=== PATIENT | female | born 1935 | race Caucasian/White ===

== ENCOUNTER → 2017-11-12 | Outpatient (CLI) | payer OTHER, MEDICARE ==
[2016-01-10 12:36] VITALS: BP 169/68
--- NOTE | 2017-11-14 10:53 | MRI ---
MRI right shoulder without contrast Indication: Right shoulder pain and stiffness with decreased range of motion Technique: Multiplanar, multi sequence imaging of the right shoulder without IV contrast administrati on. Findings: There is intermediate grade bursal surface tearing within the anterior most aspect of the s upraspinatus tendon seen on coronal image 6 and sagittal image 8. There is a tiny intrasubstance tear at the footplate of the mid/posterior fibers of the supraspinatus tendon on coronal image 8 as well. The infraspinatus tendon demonstrates low-grade articular surface tearing within the mid and posteri or fibers of the footplate single lymph coronal image 12 approximating 25-50% thickness tear. There i s an adjacent subcortical cyst within the humeral head. Small amount of subacromial, subdeltoid bursa l fluid is noted. The subscapularis tendon demonstrates moderate tendinopathy and partial-thickness t earing within the distal superior fibers seen best on axial image 12. The long head biceps tendon demonstrates normal position within the bicipital groove with small amoun t of tenosynovitis of the biceps tendon. The intra-articular portion of the long head biceps tendon d emonstrates tendinopathy without tear. There is mild degenerative signal noted within the superior la maria g. The anterior and posterior labrum demonstrate degenerative signal within the anterior labrum ho wever no acute anterior or posterior labral tear. AC joint demonstrates severe synovial an osseous hypertrophic change with subcortical cyst formation within the distal clavicle. There is mass effect on the adjacent rotator cuff likely causing impingem ent and contributing to bursal surface tear. There is moderate amount of subacromial, subdeltoid burs al fluid consistent with bursitis. The inferior glenohumeral ligament is intact, evaluation for thick ening is limited given lack of fluid distention of the joint. Impression: 1. Intermediate grade approximate 50% thickness bursal surface tear of the anterior-most fibers of th e supraspinatus tendon, given the adjacent hypertrophic new bone formation and indentation of the sup raspinatus by the AC joint DJD this is suspicious for impingement. There is also a tiny intrasubstanc e tear at the footplate of the mid/posterior fibers of the supraspinatus tendon. No full-thickness te ar. No muscle atrophy. 2. Low grade approximate 25-50% thickness articular surface tearing of the posterior fibers of the di stal infraspinatus tendon with small subcortical cyst formation. 3. Partial-thickness tear of the superior fibers of the subscapularis tendon. 4. No acute labral tear. 5. Moderate subacromial, subdeltoid bursal fluid is most consistent with bursitis. 6. Mild increased fluid within the bicipital groove of the long head biceps tendon consistent with te nosynovitis. There is no evidence of tear or displacement of the intra-articular long head biceps ten don. Reported By:
== END | disposition home or self-care (01) | DRG 556 ==
LOC: RAD 12:53
PROVIDERS: ATTEND Nurse Practitioner Family
DX: M25.511 Pain in right shoulder (principal); S46.811A Strain of other muscles, fascia and tendons at shoulder and upper arm level, right arm, initial encounter; X58.XXXA Exposure to other specified factors, initial encounter; M19.011 Primary osteoarthritis, right shoulder
CPT/HCPCS: 73221

== ENCOUNTER → 2018-02-11 | Outpatient (CLI) | payer OTHER, MEDICARE ==
[2016-01-10 12:36] VITALS: BP 169/68
--- NOTE | 2018-02-11 15:16 | MG ---
HISTORY: SCREENING Comparison: 02/11/2017 FINDINGS: Bilateral CC and MLO projections of the right and left breast were obtained. Scattered fibroglandula r tissue is seen to be present. There is a new nodular density present within the right breast, locat ed at approximately the 8 o'clock to 9 o'clock position. Additional 2 small developing asymmetries ar e visualized anteriorly to the nodule on MLO view only. Further evaluation with spot compression view s, mediolateral view, and targeted sonography is recommended. No significant architectural distortion , mass or clustered microcalcifications can be observed to suggest malignancy. No skin thickening or nipple retraction is appreciated. No pathological lymphadenopathy can be identified. Benign-appear ing calcifications scattered throughout the right and left breasts are observed. IMPRESSION: 1. New right breast nodule and 2 small right breast developing asymmetries as described above for whi ch spot compression views, mediolateral view, and targeted sonography recommended. ACR CATEGORY 0 - assessment incomplete; additional imaging needed Spot compression views, mediolateral view, and targeted sonography of the right breast recommended Diagnostic CAD was utilized and reviewed. * 0 (ZERO) - ASSESSMENT INCOMPLETE; ADDITIONAL IMAGING IS NEEDED. * 1/1 (ONE) - NEGATIVE. * 2/II (TWO) - BENIGN FINDINGS. * 3/III (THREE) - PROBABLY BENIGN FINDING; SHORT INTERVAL FOLLOW-UP SUGGESTED. * 4/IV (FOUR) - SUSPICIOUS ABNORMALITY; BIOPSY SHOULD BE CONSIDERED. * 5/V - HIGHLY SUSPICIOUS OF MALIGNANCY; BIOPSY SHOULD BE PERFORMED. A NEGATIVE X-RAY REPORT SHOULD NOT DELAY BIOPSY IF A DOMINANT OR CLINICALLY SUSPICIOUS MASS IS PRESENT; 4 TO 8 PERCENT OF CANCERS ARE NOT IDENTIFIED BY X-RAY. A NEGA TIVE REPORT MAY REINFORCE THE CLINICAL IMPRESSION. ADENOSIS AND DENSE BREASTS MAY OBSCURE AN UNDERLY ING NEOPLASM. Reported By:
== END | disposition home or self-care (01) | DRG 951 ==
LOC: RAD 09:57
PROVIDERS: ATTEND Nurse Practitioner Family
DX: Z12.31 Encounter for screening mammogram for malignant neoplasm of breast (principal); N63.13 Unspecified lump in the right breast, lower outer quadrant
CPT/HCPCS: 77067

== ENCOUNTER → 2018-03-18 | Outpatient (CLI) | payer OTHER, MEDICARE ==
[2016-01-10 12:36] VITALS: BP 169/68
--- NOTE | 2018-03-18 15:35 | MG ---
HISTORY: Abnormal screening mammography with right breast nodule and asymmetry Right breast digital diagnostic mammography with CAD and right breast ultrasound. Comparison: Multiple priors dating back to August 25, 2008 FINDINGS: Mammogram: ML and spot compression CC and MLO projections of the right breast were obtained. Scatter ed fibroglandular tissue is seen to be present with no persistent asymmetry. There is a persistent 5 mm partially obscured and partially circumscribed isodense nodule with microcalcifications located i n the upper outer anterior breast which will be correlated with ultrasound. Ultrasound: Multiple grayscale and color Doppler images of the right breast were obtained from 8-11 o 'clock. At 11 o'clock 2 cm from the nipple and favored to represent an incidental finding related to otherwise stable mammographic focal asymmetry, there is a horizontally oriented macro lobulated but s moothly marginated and well circumscribed 9 mm heterogeneous hypoechoic nodule with posterior acousti melba enhancement and no internal Doppler flow favored to represent a complex cyst or fibroadenoma. At 10 o'clock approximately 3 cm from the nipple, there is a horizontally oriented macro lobulated but s moothly marginated and well circumscribed 6 mm anechoic cyst with posterior acoustical enhancement an d no internal Doppler flow most compatible with a benign simple parenchymal cysts and which could cor respond to the mammographic findings. There is an additional 5 mm lesion at 8 o'clock 3 cm from the n ipple which could also correspond to the mammographic findings which is horizontally oriented and smo othly marginated with well-circumscribed borders again with posterior acoustical enhancement and no i nternal Doppler flow but with trace internal debris which could also correspond to the mammographic f indings. No suspicious peripheral nodular component is seen. IMPRESSION: Probably benign right breast nodule with punctate microcalcifications corresponding to e ither a simple cyst at 10 o'clock or mildly complex cyst at 8 o'clock sonographically and with an add itional probable incidental complex cyst versus fibroadenoma at 11 o'clock for which six-month follow -up right breast mammography and ultrasound are recommended. ACR CATEGORY 3 - probably benign findings; short interval follow-up suggested. Diagnostic CAD was utilized and reviewed. * 0 (ZERO) - ASSESSMENT INCOMPLETE; ADDITIONAL IMAGING IS NEEDED. * 1/ (ONE) - NEGATIVE. * 2/II (TWO) - BENIGN FINDINGS. * 3/III (THREE) - PROBABLY BENIGN FINDING; SHORT INTERVAL FOLLOW-UP SUGGESTED. * 4/IV (FOUR) - SUSPICIOUS ABNORMALITY; BIOPSY SHOULD BE CONSIDERED. * 5/V - HIGHLY SUSPICIOUS OF MALIGNANCY; BIOPSY SHOULD BE PERFORMED. A NEGATIVE X-RAY REPORT SHOULD NOT DELAY BIOPSY IF A DOMINANT OR CLINICALLY SUSPICIOUS MASS IS PRESENT; 4 TO 8 PERCENT OF CANCERS ARE NOT IDENTIFIED BY X-RAY. A NEGA TIVE REPORT MAY REINFORCE THE CLINICAL IMPRESSION. ADENOSIS AND DENSE BREASTS MAY OBSCURE AN UNDERLY ING NEOPLASM. Reported By:
== END ==
LOC: RAD 12:46
PROVIDERS: ATTEND Internal Medicine
DX: R92.8 Other abnormal and inconclusive findings on diagnostic imaging of breast (principal)
CPT/HCPCS: 76642; 77065

== ENCOUNTER 2018-04-21 10:28 | Inpatient (IN) | payer OTHER, MEDICARE ==
[2018-04-21] MEDS ORDERED: TUSSIONEX PENNKINETIC SUSP PO PRN (11:30)
[2018-04-21 11:36] VITALS: BMI 27.5
[2018-04-21] MEDS ORDERED: SALINE 3% 15 ML NEB TX NEB ONE (11:41)
[2018-04-21] MEDS ORDERED: SALINE 3% 15 ML NEB TX ONE (11:43)
[2018-04-21] MEDS ORDERED: XOPENEX 1.25 MG/3 ML NEBULE NEB ONE (12:13)
[2018-04-21 12:17] LABS: BASOPHILS # (AUTO) 0.3 X10^3/uL (0.0-0.1); BASOPHILS % (AUTO) 2.4 % (0.2-1.0); EOSINOPHILS # (AUTO) 0.4 x10^3/uL (0.0-0.2); EOSINOPHILS % (AUTO) 2.6 % (0.9-2.9); HEMATOCRIT 39.3 % (36.0-47.0); HEMOGLOBIN 13.7 g/dL (12.0-16.0); LYMPHOCYTES # (AUTO) 3.8 X10^3/uL (1.3-2.9); LYMPHOCYTES % (AUTO) 28.3 % (21.0-51.0); MEAN CORPUSCULAR HEMOGLOBIN 31.8 pg (27.0-34.0); MEAN CORPUSCULAR HGB CONC 34.9 g/dL (33.0-35.0); MEAN CORPUSCULAR VOLUME 91.1 fL (80.0-100.0); MEAN PLATELET VOLUME 7.8 fL (7.4-11.0); MONOCYTES # (AUTO) 0.9 x10^3/uL (0.3-0.8); NEUTROPHILS % (AUTO) 59.7 % (42.0-75.0); PLATELET COUNT 297 X10^3/uL (150.0-450.0); RED BLOOD COUNT 4.32 X10^6/uL (3.5-5.4); RED CELL DISTRIBUTION WIDTH 13.4 % (11.6-16.5); WHITE BLOOD COUNT 13.4 X10^3/uL (3.6-10.0)
[2018-04-21] MEDS ORDERED: NS 1/2 1000 ML IV 1,000 ML IV ONE (12:17)
[2018-04-21 12:36] LABS: ALANINE AMINOTRANSFERASE 17 Units/L (12-78); ALBUMIN 3.5 g/dL (3.4-5.0); ALKALINE PHOSPHATASE 70 Units/L (46-116); ASPARTATE AMINO TRANSFERASE 22 Units/L (15-37); BAND NEUTROPHILS % 6 % (0-10); BLOOD UREA NITROGEN 20 mg/dL (7-18); CALCIUM 8.6 mg/dL (8.5-10.1); CARBON DIOXIDE 23.4 mmol/L (21-32); CHLORIDE 106 mmol/L (98-107); CREATININE 1.16 mg/dL (0.55-1.02); PLATELET MORPHOLOGY COMMENT NORMAL (NORMAL); SODIUM 141 mmol/L (136-145); TOTAL PROTEIN 7.1 g/dL (6.4-8.2); eGFR BLACK RACES 58 (>60); eGFR NON BLACK RACES 48 (>60)
[2018-04-21] MEDS: LEVAQUIN PREMIX IV 750 MG 750 MG/150 ML BAG IV SCH (12:36)
[2018-04-21] MEDS: ROCEPHIN 1 GM IV PREMIX 1 GM/50 ML IV.SOLN. IV SCH (12:36)
[2018-04-21] MEDS: NS 1/2 1000 ML IV 1,000 ML IV SCH (12:36)
[2018-04-21] MEDS: ROBITUSSIN DM PO SCH ×3 (12:36→21:53)
[2018-04-21] MEDS: XOPENEX 1.25 MG/3 ML NEBULE NEB SCH ×2 (12:43→16:23)
--- NOTE | 2018-04-21 15:01 | RAD ---
HISTORY: Cough, congestion, shortness of breath Study: PA and lateral views of the chest Comparison: 01/05/2016 Findings: No infiltrate, effusion or pneumothorax identified. The cardiac and mediastinal contours are within n ormal limits. The soft tissues are unremarkable. IMPRESSION: 1. No acute cardiopulmonary abnormality. Reported By:
[2018-04-21] MEDS: SOLU-Medrol 125 MG VIAL IVP SCH ×3 (15:33→21:54)
--- NOTE | 2018-04-21 17:53 | DR.H&P ---
H&P - History & Physical for Day of: H&P Date: 04/21/18 - Chief Complaint Chief Complaint: sob, wheezing, cough x 2 weeks - Allergies Allergies/Adverse Reactions: Allergies Allergy/AdvReac Type Severity Reaction Status Date / Time No Known Drug Allergies Allergy Verified 04/21/18 11:18 - History of Present Illness History of Present Illness: 83 WF DIRECT ADMIT FROM DR BROOKS OFFICE WITH ACUTE BRONCHITIS FAILED OUTPT THERAPY. PT HAS HAD C/O SOB, COUGH AND WHEEZING FOR 2 WEEKS. PT HAS HAD PO ANTIBIOTICS AND IM ROCEPHIN AND STEROIDS WITHOUT IMPROVEMENT. PT HAS PMH OF CAD, OA, HTN. PT ADMITTED FOR IV ABTX AND TREATMENT AND EVALUATION OF BRONCHITIS. - Past Medical History Past Medical History: Arthritis, Hypertension - Past Surgical History Surgical History: Appendectomy, Cholecystectomy, Hysterectomy - Family History Family Medical History: Diabetes Mellitus, Cancer, [place] - Social History Does patient currently use any type of tobacco product: No Have you used tobacco products in the last 12 months: No Type of Tobacco Use: None Alcohol Use: None Drug Use: None - Medications Home Medications: Isosorbide Mononitrate [Isosorbide Mononitrate ER] 30 mg PO DAILY 04/21/18 [ History Confirmed 04/21/18] - Review of Systems Constitutional: Fever, Weakness, Malaise Eyes: No Symptoms Reported ENT: No Symptoms Reported Respiratory: Cough, Shortness of Breath, SOB with Excertion, Wheezing Cardiovascular: No Symptoms Reported Gastrointestinal: Nausea Genitourinary: No Symptoms Reported Musculoskeletal: Leg Pain, Foot Pain Skin: No Symptoms Reported Neurological: No Symptoms Reported - Physical Exam Vital Signs: Temperature 98.4 F Pulse Rate [Right Radial] 90 Pulse Rate 85 Respiratory Rate 20 Blood Pressure [Right Arm] 149/68 Blood Pressure [Left Arm] 190/90 Blood Pressure 169/68 O2 Sat by Pulse Oximetry 96 Oriented: Person Eyes: Normal Ear: Normal Nose: Normal Throat: Normal Respiratory: RLL Exp. Wheeze, LLL Exp. Wheeze Cardiovascular: Normal : Normal Auscultation: Bowel Sounds: Normal Palpation: Normal Tenderness: Normal Skin: Decreased Turgur Musculoskeletal: Back:Lumbar Psychiatric: Anxiety Affect: Anxious Speech Pattern: Clear, Appropriate - Assessment/Plan (1) Acute bronchiolitis Status: Acute Plan: ADMIT, PNEUMONIA PROTOCOL. IV ATBX, JET NEBS, SUPPLEMENTAL O2 PRN. BP CONTROL, VERIFY AND RESUME HOME MEDS. BLOOD AND SPUTUM CULTURES ON ADMISSION (2) Bronchopneumonia Status: Acute (3) Hypertension Status: Acute
[2018-04-21] MEDS ORDERED: METOPROLOL TARTRATE 25 MG PO SCH (21:00)
[2018-04-21] MEDS: LOPID PO SCH (21:53)
[2018-04-21] MEDS: LOPRESSOR TAB 25 MG PO SCH (21:53)
[2018-04-22] MEDS: PULMICORT NEB TX 0.5 MG NEB SCH ×3 (01:00→21:04)
[2018-04-22] MEDS: XOPENEX 1.25 MG/3 ML NEBULE NEB SCH ×5 (01:00→21:04)
[2018-04-22] MEDS ORDERED: TYLENOL 325 MG TAB PO PRN (01:05)
[2018-04-22] MEDS ORDERED: NS 1/2 1000 ML IV 1,000 ML IV ONE ×2 (01:12→20:18)
[2018-04-22] MEDS: NS 1/2 1000 ML IV 1,000 ML IV SCH ×2 (01:15→20:19)
[2018-04-22 06:16] LABS: BASOPHILS # (AUTO) 0.1 X10^3/uL (0.0-0.1); BASOPHILS % (AUTO) 0.8 % (0.2-1.0); HEMATOCRIT 38.5 % (36.0-47.0); HEMOGLOBIN 13.5 g/dL (12.0-16.0); LYMPHOCYTES # (AUTO) 1.3 X10^3/uL (1.3-2.9); LYMPHOCYTES % (AUTO) 12.2 % (21.0-51.0); MEAN CORPUSCULAR HEMOGLOBIN 31.8 pg (27.0-34.0); MEAN CORPUSCULAR HGB CONC 34.9 g/dL (33.0-35.0); MEAN CORPUSCULAR VOLUME 91.1 fL (80.0-100.0); MEAN PLATELET VOLUME 8.3 fL (7.4-11.0); MONOCYTES # (AUTO) 0.2 x10^3/uL (0.3-0.8); MONOCYTES % (AUTO) 1.4 % (0.0-13.0); NEUTROPHILS # (AUTO) 9.4 x10^3/uL (2.2-4.8); NEUTROPHILS % (AUTO) 85.6 % (42.0-75.0); PLATELET COUNT 273 X10^3/uL (150.0-450.0); RED BLOOD COUNT 4.23 X10^6/uL (3.5-5.4); RED CELL DISTRIBUTION WIDTH 13.7 % (11.6-16.5)
[2018-04-22 06:45] LABS: BAND NEUTROPHILS % 8 % (0-10); PLATELET MORPHOLOGY COMMENT NORMAL (NORMAL)
[2018-04-22 06:52] LABS: ALANINE AMINOTRANSFERASE 17 Units/L (12-78); ALBUMIN 3.5 g/dL (3.4-5.0); ALKALINE PHOSPHATASE 75 Units/L (46-116); ASPARTATE AMINO TRANSFERASE 12 Units/L (15-37); BLOOD UREA NITROGEN 17 mg/dL (7-18); CALCIUM 8.8 mg/dL (8.5-10.1); CARBON DIOXIDE 20.6 mmol/L (21-32); CHLORIDE 104 mmol/L (98-107); COR NA(FOR HYPERGLY) 142 mmol/L (136-145); CREATININE 1.27 mg/dL (0.55-1.02); SODIUM 138 mmol/L (136-145); TOTAL PROTEIN 7.1 g/dL (6.4-8.2); eGFR BLACK RACES 52 (>60); eGFR NON BLACK RACES 43 (>60)
[2018-04-22] MEDS: ROCEPHIN 1 GM IV PREMIX 1 GM/50 ML IV.SOLN. IV SCH (08:47)
[2018-04-22] MEDS: LEVAQUIN PREMIX IV 750 MG 750 MG/150 ML BAG IV SCH (08:48)
[2018-04-22] MEDS: NORVASC TAB 5 MG PO SCH (08:48)
[2018-04-22] MEDS: ROBITUSSIN DM PO SCH ×4 (08:48→20:20)
[2018-04-22] MEDS: IMDUR PO SCH (08:48)
[2018-04-22] MEDS: SYNTHROID 50 mcg TAB PO SCH (08:48)
[2018-04-22] MEDS: LOPRESSOR TAB 25 MG PO SCH ×2 (08:48→20:20)
[2018-04-22] MEDS: TUSSIONEX PENNKINETIC SUSP PO SCH ×2 (11:52→22:30)
--- NOTE | 2018-04-22 17:50 | PCM.PROG ---
Progress Note - Progress Note for Day of Date: 04/22/18 - Subjective Subjective: 83 WF ADMITTED ON 04/21 WITH ACUTE BRONCHITIS FAILED OUTPT THERAPY. PT CO CONTINUED COUGH AND WHEEZING. PT CURRENTLY ON IV ATBX, IV STEROIDS AND RESP THERAPY. PLAN TO CONTINUE CURRENT PNEUMONIA PROTOCOL WITH SPUTUM SPECIMEN PENDING. - Past Medical Family Social History Allergies: Allergies No Known Drug Allergies Allergy (Verified 04/21/18 11:18) - Vital Signs and I&O's Vital Signs: Temperature 98.6 F Pulse Rate [Right Radial] 86 Pulse Rate 77 Respiratory Rate 18 Blood Pressure [Right Arm] 119/55 Blood Pressure [Left Arm] 190/90 Blood Pressure 169/68 O2 Sat by Pulse Oximetry 97 Intake and Output: Intake & Output 04/20/18 04/21/18 04/22/18 04/23/18 11:59 11:59 11:59 11:59 Intake Total 1800 960 Balance 1800 960 - Physical Exam Oriented: Person Eyes: Normal Ear: Normal Nose: Normal Throat: Normal Respiratory: Diminished, Rhonchi Cardiovascular: Normal : Normal Auscultation: Bowel Sounds: Normal Tenderness: Normal Skin: Decreased Turgur Musculoskeletal: Back:Lumbar Psychiatric: Anxiety Affect: Anxious Speech Pattern: Clear - Laboratory and Diagnostics Result Diagrams: 04/22/18 04:21 04/22/18 04:21 Labs: 04/21/18 11:46 Sputum - Expectorated Sputum Sputum Culture - Preliminary 04/21/18 11:46 Sputum - Expectorated Sputum - Final Laboratory WBC 11.0 X10^3/uL (3.6-10.0) H 04/22/18 04:21 RBC 4.23 X10^6/uL (3.5-5.4) 04/22/18 04:21 Hgb 13.5 g/dL (12.0-16.0) 04/22/18 04:21 Hct 38.5 % (36.0-47.0) 04/22/18 04:21 MCV 91.1 fL (80.0-100.0) 04/22/18 04:21 MCH 31.8 pg (27.0-34.0) 04/22/18 04:21 MCHC 34.9 g/dL (33.0-35.0) 04/22/18 04:21 RDW 13.7 % (11.6-16.5) 04/22/18 04:21 Plt Count 273 X10^3/uL (150.0-450.0) 04/22/18 04:21 Plt Count Comment Adequate (ADEQUATE) 04/22/18 04:21 MPV 8.3 fL (7.4-11.0) 04/22/18 04:21 Neut % (Auto) 85.6 % (42.0-75.0) H 04/22/18 04:21 Lymph % (Auto) 12.2 % (21.0-51.0) L 04/22/18 04:21 [place] % (Auto) 1.4 % (0.0-13.0) 04/22/18 04:21 Eos % (Auto) 0.0 % (0.9-2.9) L 04/22/18 04:21 Baso % (Auto) 0.8 % (0.2-1.0) 04/22/18 04:21 Neut # (Auto) 9.4 x10^3/uL (2.2-4.8) H 04/22/18 04:21 Lymph # (Auto) 1.3 X10^3/uL (1.3-2.9) 04/22/18 04:21 [place] # (Auto) 0.2 x10^3/uL (0.3-0.8) L 04/22/18 04:21 Eos # (Auto) 0.0 x10^3/uL (0.0-0.2) 04/22/18 04:21 Baso # (Auto) 0.1 X10^3/uL (0.0-0.1) 04/22/18 04:21 Absolute Nucleated RBC 0.0 /100WBC 04/22/18 04:21 Total Counted 100 04/22/18 04:21 Neutrophils % (Manual) 78 % (39-76) H 04/22/18 04:21 Band Neutrophils % 8 % (0-10) 04/22/18 04:21 Lymphocytes % (Manual) 12 % (13-43) L 04/22/18 04:21 Monocytes % (Manual) 2 % (4-9) L 04/22/18 04:21 Eosinophils % (Manual) 6 % (0-6) 04/21/18 11:53 Plt Morphology Comment Normal (NORMAL) 04/22/18 04:21 RBC Morphology Normal (NORMAL) 04/22/18 04:21 Sodium 138 mmol/L (136-145) 04/22/18 04:21 Corrected Sodium 142 mmol/L (136-145) 04/22/18 04:21 Potassium 4.2 mmol/L (3.5-5.1) 04/22/18 04:21 Chloride 104 mmol/L (98-107) 04/22/18 04:21 Carbon Dioxide 20.6 mmol/L (21-32) L 04/22/18 04:21 BUN 17 mg/dL (7-18) 04/22/18 04:21 Creatinine 1.27 mg/dL (0.55-1.02) H 04/22/18 04:21 Est GFR (MDRD) Af Amer 52 (>60) L 04/22/18 04:21 Est GFR (MDRD) Non-Af 43 (>60) L 04/22/18 04:21 Glucose 257 mg/dL (65-99) H 04/22/18 04:21 Calcium 8.8 mg/dL (8.5-10.1) 04/22/18 04:21 Corrected Calcium TNP 04/22/18 04:21 Total Bilirubin 0.30 mg/dL (0.2-1.0) 04/22/18 04:21 AST 12 Units/L (15-37) L 04/22/18 04:21 ALT 17 Units/L (12-78) 04/22/18 04:21 Alkaline Phosphatase 75 Units/L (46-116) 04/22/18 04:21 Total Protein 7.1 g/dL (6.4-8.2) 04/22/18 04:21 Albumin 3.5 g/dL (3.4-5.0) 04/22/18 04:21 Globulin 3.6 g/dL (2.5-4.5) 04/22/18 04:21 Albumin/Globulin Ratio 1.0 Ratio (1.1-2.1) L 04/22/18 04:21 - Plan (1) Acute bronchiolitis Status: Acute Plan: CONTINUE PNEUMONIA PROTOCOL. IV ATBX, JET NEBS, SUPPLEMENTAL O2 PRN. BP CONTROL, VERIFY AND RESUME HOME MEDS. BLOOD AND SPUTUM CULTURES ON ADMISSION (2) Bronchopneumonia Status: Acute (3) Hypertension Status: Acute Plan: resume home meds, bp control
[2018-04-22] MEDS: LOPID PO SCH (20:20)
[2018-04-23 05:41] LABS: ALBUMIN 3.2 g/dL (3.4-5.0); CARBON DIOXIDE 25.6 mmol/L (21-32); COR CA(FOR HYPOALB) 8.6 mg/dL (8.5-10.1); CREATININE 1.21 mg/dL (0.55-1.02); TOTAL PROTEIN 6.4 g/dL (6.4-8.2)
[2018-04-23 05:45] LABS: BASOPHILS # (AUTO) 0.1 X10^3/uL (0.0-0.1); BASOPHILS % (AUTO) 0.3 % (0.2-1.0); EOSINOPHILS # (AUTO) 0.1 x10^3/uL (0.0-0.2); EOSINOPHILS % (AUTO) 0.4 % (0.9-2.9); HEMATOCRIT 35.8 % (36.0-47.0); HEMOGLOBIN 12.4 g/dL (12.0-16.0); LYMPHOCYTES # (AUTO) 2.7 X10^3/uL (1.3-2.9); LYMPHOCYTES % (AUTO) 15.5 % (21.0-51.0); MEAN CORPUSCULAR HEMOGLOBIN 31.7 pg (27.0-34.0); MEAN CORPUSCULAR HGB CONC 34.5 g/dL (33.0-35.0); MEAN CORPUSCULAR VOLUME 91.8 fL (80.0-100.0); MONOCYTES # (AUTO) 1.3 x10^3/uL (0.3-0.8); MONOCYTES % (AUTO) 7.3 % (0.0-13.0); NEUTROPHILS # (AUTO) 13.5 x10^3/uL (2.2-4.8); NEUTROPHILS % (AUTO) 76.5 % (42.0-75.0); PLATELET COUNT 283 X10^3/uL (150.0-450.0); RED CELL DISTRIBUTION WIDTH 13.7 % (11.6-16.5); WHITE BLOOD COUNT 17.7 X10^3/uL (3.6-10.0)
[2018-04-23 06:31] LABS: BAND NEUTROPHILS % 1 % (0-10); PLATELET MORPHOLOGY COMMENT NORMAL (NORMAL)
[2018-04-23] MEDS: NS 1/2 1000 ML IV 1,000 ML IV SCH ×3 (07:21→21:54)
[2018-04-23] MEDS: LEVAQUIN PREMIX IV 750 MG 750 MG/150 ML BAG IV SCH (08:31)
[2018-04-23] MEDS: ROCEPHIN 1 GM IV PREMIX 1 GM/50 ML IV.SOLN. IV SCH (08:31)
[2018-04-23] MEDS: SYNTHROID 50 mcg TAB PO SCH (08:32)
[2018-04-23] MEDS: ROBITUSSIN DM PO SCH ×4 (08:32→20:13)
[2018-04-23] MEDS: LOPRESSOR TAB 25 MG PO SCH ×2 (08:33→20:13)
[2018-04-23] MEDS: IMDUR PO SCH (08:33)
[2018-04-23] MEDS: NORVASC TAB 5 MG PO SCH (08:33)
[2018-04-23] MEDS: XOPENEX 1.25 MG/3 ML NEBULE NEB SCH ×2 (08:45→17:10)
[2018-04-23] MEDS: PULMICORT NEB TX 0.5 MG NEB SCH ×2 (08:45→20:17)
[2018-04-23] MEDS: COLACE CAP 100 MG PO SCH ×2 (10:33→20:13)
[2018-04-23] MEDS: MILK OF MAGNESIA PO SCH ×2 (10:33→21:55)
[2018-04-23] MEDS: TUSSIONEX PENNKINETIC SUSP PO SCH ×2 (11:07→22:00)
[2018-04-23] MEDS ORDERED: NS 1/2 1000 ML IV 1,000 ML IV ONE ×2 (11:19→20:11)
[2018-04-23 17:04] LABS: APPEARANCE,URINE HAZY (CLEAR); COLOR,URINE YELLOW (YELLOW)
[2018-04-23 17:05] LABS: BILIRUBIN,URINE NEGATIVE (NEGATIVE); BLOOD/HEMOGLOBIN,URINE NEGATIVE (NEGATIVE); GLUCOSE, URINE NEGATIVE (NEGATIVE); KETONES,URINE NEGATIVE (NEGATIVE); LEUKOCYTE ESTERASE ,URINE 1+ (NEGATIVE); NITRITES,URINE NEGATIVE (NEGATIVE); PROTEIN,URINE NEGATIVE (NEGATIVE); UROBILINOGEN,URINE NORMAL (NORMAL)
[2018-04-23 17:06] LABS: BACTERIA,URINE NEGATIVE /HPF (NEGATIVE); RBC,URINE NONE SEEN /HPF (NONE SEEN); SQUAMOUS EPITHELIAL CELL,UR FEW /HPF (NEGATIVE)
--- NOTE | 2018-04-23 18:28 | PCM.PROG ---
Progress Note - Progress Note for Day of Date: 04/23/18 - Subjective Subjective: 83 WF ADMITTED ON 04/21 WITH ACUTE BRONCHITIS FAILED OUTPT THERAPY. PT CURRENTLY ON IV ATBX, IV STEROIDS AND RESP THERAPY. PLAN TO CONTINUE CURRENT PNEUMONIA PROTOCOL WITH SPUTUM SPECIMEN PENDING. PT HAD BC COLLECTED ON ADMISSION WITH ONE BC POSITIVE FOR GRAM +COCCI, CURRENTLY WAITING FOR SENSATIVITY, 2ND NEGATIVE AT THIS TIME, CONSIDER CONTAMINATION. REPEAT SET ORDERED TODAY. PT DENIES FEVER, CO IMPROVING COUGH AND WHEEZING. PT STATES SHE READY TO GO HOME. ENCOURAGED AMBUALTION AND PULMONARY TOILETING. - Past Medical Family Social History Past Med/Fam/Surg Hx: No changes since H&P Allergies: Allergies No Known Drug Allergies Allergy (Verified 04/21/18 11:18) - Review of Systems ROS: No change since H&P - Vital Signs and I&O's Vital Signs: Temperature 98.5 F Pulse Rate [Right Radial] 75 Pulse Rate 72 Respiratory Rate 20 Blood Pressure [Right Arm] 134/67 Blood Pressure [Left Arm] 190/90 Blood Pressure 169/68 O2 Sat by Pulse Oximetry 95 Intake and Output: Intake & Output 04/21/18 04/22/18 04/23/18 04/24/18 11:59 11:59 11:59 11:59 Intake Total 1800 2795 1200 Balance 1800 2795 1200 - Physical Exam Oriented: Person Eyes: Normal Ear: Normal Nose: Normal Throat: Normal Respiratory: Diminished, Rhonchi Cardiovascular: Normal : Normal Auscultation: Bowel Sounds: Normal Tenderness: Normal Skin: Decreased Turgur Musculoskeletal: Back:Lumbar Psychiatric: Anxiety Affect: Anxious Speech Pattern: Clear - Laboratory and Diagnostics Result Diagrams: 04/23/18 04:15 04/23/18 04:15 Labs: 04/21/18 11:53 Blood Blood Culture - Preliminary 04/21/18 12:06 Blood Blood Culture - Preliminary 04/21/18 11:46 Sputum - Expectorated Sputum Sputum Culture - Final 04/21/18 11:46 Sputum - Expectorated Sputum - Final Laboratory WBC 17.7 X10^3/uL (3.6-10.0) H 04/23/18 04:15 RBC 3.90 X10^6/uL (3.5-5.4) 04/23/18 04:15 Hgb 12.4 g/dL (12.0-16.0) 04/23/18 04:15 Hct 35.8 % (36.0-47.0) L 04/23/18 04:15 MCV 91.8 fL (80.0-100.0) 04/23/18 04:15 MCH 31.7 pg (27.0-34.0) 04/23/18 04:15 MCHC 34.5 g/dL (33.0-35.0) 04/23/18 04:15 RDW 13.7 % (11.6-16.5) 04/23/18 04:15 Plt Count 283 X10^3/uL (150.0-450.0) 04/23/18 04:15 Plt Count Comment Adequate (ADEQUATE) 04/23/18 04:15 MPV 8.0 fL (7.4-11.0) 04/23/18 04:15 Neut % (Auto) 76.5 % (42.0-75.0) H 04/23/18 04:15 Lymph % (Auto) 15.5 % (21.0-51.0) L 04/23/18 04:15 [place] % (Auto) 7.3 % (0.0-13.0) 04/23/18 04:15 Eos % (Auto) 0.4 % (0.9-2.9) L 04/23/18 04:15 Baso % (Auto) 0.3 % (0.2-1.0) 04/23/18 04:15 Neut # (Auto) 13.5 x10^3/uL (2.2-4.8) H 04/23/18 04:15 Lymph # (Auto) 2.7 X10^3/uL (1.3-2.9) 04/23/18 04:15 [place] # (Auto) 1.3 x10^3/uL (0.3-0.8) H 04/23/18 04:15 Eos # (Auto) 0.1 x10^3/uL (0.0-0.2) 04/23/18 04:15 Baso # (Auto) 0.1 X10^3/uL (0.0-0.1) 04/23/18 04:15 Absolute Nucleated RBC 0.0 /100WBC 04/23/18 04:15 Total Counted 100 04/23/18 04:15 Neutrophils % (Manual) 80 % (39-76) H 04/23/18 04:15 Band Neutrophils % 1 % (0-10) 04/23/18 04:15 Lymphocytes % (Manual) 5 % (13-43) L 04/23/18 04:15 Monocytes % (Manual) 4 % (4-9) 04/23/18 04:15 Eosinophils % (Manual) 6 % (0-6) 04/21/18 11:53 Plt Morphology Comment Normal (NORMAL) 04/23/18 04:15 RBC Morphology Normal (NORMAL) 04/23/18 04:15 Sodium 142 mmol/L (136-145) 04/23/18 04:15 Corrected Sodium 144 mmol/L (136-145) 04/23/18 04:15 Potassium 3.6 mmol/L (3.5-5.1) 04/23/18 04:15 Chloride 107 mmol/L (98-107) 04/23/18 04:15 Carbon Dioxide 25.6 mmol/L (21-32) 04/23/18 04:15 BUN 20 mg/dL (7-18) H 04/23/18 04:15 Creatinine 1.21 mg/dL (0.55-1.02) H 04/23/18 04:15 Est GFR (MDRD) Af Amer 55 (>60) L 04/23/18 04:15 Est GFR (MDRD) Non-Af 45 (>60) L 04/23/18 04:15 Glucose 165 mg/dL (65-99) H 04/23/18 04:15 Calcium 8.0 mg/dL (8.5-10.1) L 04/23/18 04:15 Corrected Calcium 8.6 mg/dL (8.5-10.1) 04/23/18 04:15 Total Bilirubin 0.20 mg/dL (0.2-1.0) 04/23/18 04:15 AST 16 Units/L (15-37) 04/23/18 04:15 ALT 19 Units/L (12-78) 04/23/18 04:15 Alkaline Phosphatase 70 Units/L (46-116) 04/23/18 04:15 Total Protein 6.4 g/dL (6.4-8.2) 04/23/18 04:15 Albumin 3.2 g/dL (3.4-5.0) L 04/23/18 04:15 Globulin 3.2 g/dL (2.5-4.5) 04/23/18 04:15 Albumin/Globulin Ratio 1.0 Ratio (1.1-2.1) L 04/23/18 04:15 Specimen Type Clean catch urine 04/23/18 16:30 Urine Color Yellow (YELLOW) 04/23/18 16:30 Urine Appearance Hazy (CLEAR) 04/23/18 16:30 Urine pH 6.0 (5.0 - 8.0) 04/23/18 16:30 Ur Specific [place] 1.010 (1.000-1.030) 04/23/18 16:30 Urine Protein Negative (NEGATIVE) 04/23/18 16:30 Urine Glucose (UA) Negative (NEGATIVE) 04/23/18 16:30 Urine Ketones Negative (NEGATIVE) 04/23/18 16:30 Urine Occult Blood Negative (NEGATIVE) 04/23/18 16:30 Urine Nitrite Negative (NEGATIVE) 04/23/18 16:30 Urine Bilirubin Negative (NEGATIVE) 04/23/18 16:30 Urine Urobilinogen Normal (NORMAL) 04/23/18 16:30 Ur Leukocyte Esterase 1+ (NEGATIVE) 04/23/18 16:30 Urine RBC None seen /HPF (NONE SEEN) 04/23/18 16:30 Urine WBC 0-2 /HPF (NONE SEEN) 04/23/18 16:30 Ur Squamous Epith Cells Few /HPF (NEGATIVE) 04/23/18 16:30 Ur Transition Epith Cell Cancelled 04/23/18 16:28 Ur Renal Epithelial Cell Cancelled 04/23/18 16:28 Calcium Oxalate Crystal Cancelled 04/23/18 16:28 Cystine Crystals Cancelled 04/23/18 16:28 Uric Acid Crystals Cancelled 04/23/18 16:28 Triple Phos Crystals Cancelled 04/23/18 16:28 Tyrosine Crystals Cancelled 04/23/18 16:28 Other Crystals Cancelled 04/23/18 16:28 Amorphous Sediment Cancelled 04/23/18 16:28 Urine Bacteria Negative /HPF (NEGATIVE) 04/23/18 16:30 Hyaline Casts Cancelled 04/23/18 16:28 Granular Casts Cancelled 04/23/18 16:28 Fine Granular Casts Cancelled 04/23/18 16:28 Coarse Granular Casts Cancelled 04/23/18 16:28 RBC Casts Cancelled 04/23/18 16:28 Other Casts Cancelled 04/23/18 16:28 Urine Mucus Cancelled 04/23/18 16:28 Urine Trichomonas Cancelled 04/23/18 16:28 Urine Yeast Cancelled 04/23/18 16:28 Urine Sperm Cancelled 04/23/18 16:28 Ur Culture Indicated? Yes/culture set up 04/23/18 16:30 - Plan (1) Acute bronchiolitis Status: Acute Plan: CONTINUE PNEUMONIA PROTOCOL. IV ATBX, JET NEBS, SUPPLEMENTAL O2 PRN. BP CONTROL, VERIFY AND RESUME HOME MEDS. BLOOD AND SPUTUM CULTURES ON ADMISSION (2) Bronchopneumonia Status: Acute (3) Hypertension Status: Acute Plan: resume home meds, bp control (4) Positive blood culture Status: Acute Plan: SENSATIVITY PENDING, CURRENTLY ON IV LEVAQUIN AND ROCEPHIN. PT HAD REPEAT BC TODAY
[2018-04-23] MEDS: LOPID PO SCH (20:13)
[2018-04-24] MEDS: XOPENEX 1.25 MG/3 ML NEBULE NEB SCH ×4 (00:54→17:30)
[2018-04-24 06:24] LABS: BASOPHILS # (AUTO) 0.1 X10^3/uL (0.0-0.1); BASOPHILS % (AUTO) 0.8 % (0.2-1.0); EOSINOPHILS # (AUTO) 0.2 x10^3/uL (0.0-0.2); EOSINOPHILS % (AUTO) 1.6 % (0.9-2.9); HEMATOCRIT 35.8 % (36.0-47.0); HEMOGLOBIN 12.4 g/dL (12.0-16.0); LYMPHOCYTES # (AUTO) 4.2 X10^3/uL (1.3-2.9); LYMPHOCYTES % (AUTO) 36.1 % (21.0-51.0); MEAN CORPUSCULAR HGB CONC 34.6 g/dL (33.0-35.0); MEAN CORPUSCULAR VOLUME 92.3 fL (80.0-100.0); MEAN PLATELET VOLUME 7.9 fL (7.4-11.0); MONOCYTES # (AUTO) 1.1 x10^3/uL (0.3-0.8); MONOCYTES % (AUTO) 9.1 % (0.0-13.0); NEUTROPHILS # (AUTO) 6.2 x10^3/uL (2.2-4.8); NEUTROPHILS % (AUTO) 52.4 % (42.0-75.0); PLATELET COUNT 250 X10^3/uL (150.0-450.0); RED BLOOD COUNT 3.88 X10^6/uL (3.5-5.4); RED CELL DISTRIBUTION WIDTH 13.6 % (11.6-16.5); WHITE BLOOD COUNT 11.8 X10^3/uL (3.6-10.0)
[2018-04-24 06:29] LABS: ALANINE AMINOTRANSFERASE 17 Units/L (12-78); ALBUMIN 3.1 g/dL (3.4-5.0); ALKALINE PHOSPHATASE 60 Units/L (46-116); ASPARTATE AMINO TRANSFERASE 16 Units/L (15-37); BLOOD UREA NITROGEN 18 mg/dL (7-18); CARBON DIOXIDE 24.4 mmol/L (21-32); CHLORIDE 108 mmol/L (98-107); COR CA(FOR HYPOALB) 8.7 mg/dL (8.5-10.1); COR NA(FOR HYPERGLY) 142 mmol/L (136-145); SODIUM 141 mmol/L (136-145); TOTAL PROTEIN 6.1 g/dL (6.4-8.2); eGFR BLACK RACES > 60 (>60); eGFR NON BLACK RACES 51 (>60)
[2018-04-24 07:03] LABS: BAND NEUTROPHILS % 4 % (0-10); BASOPHILS % (MANUAL) 1 % (0-1); PLATELET MORPHOLOGY COMMENT NORMAL (NORMAL)
[2018-04-24] MEDS: ROBITUSSIN DM PO SCH ×4 (08:59→20:11)
[2018-04-24] MEDS: LEVAQUIN PREMIX IV 750 MG 750 MG/150 ML BAG IV SCH (09:00)
[2018-04-24] MEDS: ROCEPHIN 1 GM IV PREMIX 1 GM/50 ML IV.SOLN. IV SCH (09:00)
[2018-04-24] MEDS: TUSSIONEX PENNKINETIC SUSP PO SCH ×3 (09:00→23:37)
[2018-04-24] MEDS: SYNTHROID 50 mcg TAB PO SCH (09:01)
[2018-04-24] MEDS: NORVASC TAB 5 MG PO SCH (09:01)
[2018-04-24] MEDS: IMDUR PO SCH (09:01)
[2018-04-24] MEDS: LOPRESSOR TAB 25 MG PO SCH ×2 (09:01→20:11)
[2018-04-24] MEDS: PULMICORT NEB TX 0.5 MG NEB SCH (13:07)
[2018-04-24] MEDS ORDERED: NS 1/2 1000 ML IV 0 ML IV ONE (17:24)
[2018-04-24] MEDS ORDERED: NS 1/2 1000 ML IV 1,000 ML IV ONE (17:26)
[2018-04-24] MEDS: NS 1/2 1000 ML IV 1,000 ML IV SCH (17:27)
[2018-04-24] MEDS: COLACE CAP 100 MG PO SCH (20:11)
[2018-04-24] MEDS: LOPID PO SCH (20:11)
[2018-04-24] MEDS: MILK OF MAGNESIA PO SCH (20:13)
[2018-04-25] MEDS: XOPENEX 1.25 MG/3 ML NEBULE NEB SCH ×3 (00:59→14:00)
[2018-04-25] MEDS: NS 1/2 1000 ML IV 1,000 ML IV SCH ×3 (02:12→16:56)
[2018-04-25 05:18] LABS: BASOPHILS # (AUTO) 0.1 X10^3/uL (0.0-0.1); BASOPHILS % (AUTO) 0.9 % (0.2-1.0); EOSINOPHILS # (AUTO) 0.4 x10^3/uL (0.0-0.2); EOSINOPHILS % (AUTO) 3.4 % (0.9-2.9); HEMATOCRIT 34.6 % (36.0-47.0); HEMOGLOBIN 11.9 g/dL (12.0-16.0); LYMPHOCYTES # (AUTO) 3.3 X10^3/uL (1.3-2.9); LYMPHOCYTES % (AUTO) 27.4 % (21.0-51.0); MEAN CORPUSCULAR HEMOGLOBIN 31.9 pg (27.0-34.0); MEAN CORPUSCULAR HGB CONC 34.5 g/dL (33.0-35.0); MEAN CORPUSCULAR VOLUME 92.2 fL (80.0-100.0); MEAN PLATELET VOLUME 7.9 fL (7.4-11.0); MONOCYTES # (AUTO) 1.1 x10^3/uL (0.3-0.8); MONOCYTES % (AUTO) 9.6 % (0.0-13.0); NEUTROPHILS % (AUTO) 58.7 % (42.0-75.0); PLATELET COUNT 248 X10^3/uL (150.0-450.0); RED BLOOD COUNT 3.75 X10^6/uL (3.5-5.4); RED CELL DISTRIBUTION WIDTH 13.2 % (11.6-16.5); WHITE BLOOD COUNT 11.9 X10^3/uL (3.6-10.0)
[2018-04-25 05:24] LABS: ALANINE AMINOTRANSFERASE 24 Units/L (12-78); ALKALINE PHOSPHATASE 63 Units/L (46-116); ASPARTATE AMINO TRANSFERASE 11 Units/L (15-37); BLOOD UREA NITROGEN 19 mg/dL (7-18); CALCIUM 7.9 mg/dL (8.5-10.1); CARBON DIOXIDE 25.2 mmol/L (21-32); CHLORIDE 107 mmol/L (98-107); COR CA(FOR HYPOALB) 8.7 mg/dL (8.5-10.1); COR NA(FOR HYPERGLY) 141 mmol/L (136-145); CREATININE 1.07 mg/dL (0.55-1.02); SODIUM 140 mmol/L (136-145); TOTAL PROTEIN 5.9 g/dL (6.4-8.2); eGFR BLACK RACES > 60 (>60); eGFR NON BLACK RACES 52 (>60)
[2018-04-25 06:01] LABS: PLATELET MORPHOLOGY COMMENT NORMAL (NORMAL)
[2018-04-25] MEDS ORDERED: NS 1/2 1000 ML IV 1,000 ML IV ONE (08:48)
[2018-04-25] MEDS: ROBITUSSIN DM PO SCH ×4 (09:04→20:04)
[2018-04-25] MEDS: ROCEPHIN 1 GM IV PREMIX 1 GM/50 ML IV.SOLN. IV SCH (09:04)
[2018-04-25] MEDS: LEVAQUIN PREMIX IV 750 MG 750 MG/150 ML BAG IV SCH (09:04)
[2018-04-25] MEDS: LOPRESSOR TAB 25 MG PO SCH ×2 (09:04→20:03)
[2018-04-25] MEDS: IMDUR PO SCH (09:04)
[2018-04-25] MEDS: SYNTHROID 50 mcg TAB PO SCH (09:04)
[2018-04-25] MEDS: NORVASC TAB 5 MG PO SCH (09:04)
[2018-04-25] MEDS: TUSSIONEX PENNKINETIC SUSP PO SCH ×2 (11:22→22:33)
[2018-04-25] MEDS: PULMICORT NEB TX 0.5 MG NEB SCH (14:00)
[2018-04-25] MEDS: LOPID PO SCH (20:03)
[2018-04-25] MEDS: COLACE CAP 100 MG PO SCH (20:03)
[2018-04-25] MEDS: MILK OF MAGNESIA PO SCH (20:04)
[2018-04-26] MEDS: XOPENEX 1.25 MG/3 ML NEBULE NEB SCH ×2 (01:15→05:53)
[2018-04-26] MEDS: PULMICORT NEB TX 0.5 MG NEB SCH (01:15)
[2018-04-26 04:52] VITALS: BP 178/74
[2018-04-26] MEDS: NS 1/2 1000 ML IV 1,000 ML IV SCH (05:45)
== END 2018-04-26 09:20 | disposition home or self-care (01) | DRG 195 ==
LOC: MED/SURG 10:28
PROVIDERS: ADMIT Internal Medicine; ATTEND Internal Medicine
DX: J18.0 Bronchopneumonia, unspecified organism (principal); J20.8 Acute bronchitis due to other specified organisms; R06.02 Shortness of breath; I25.10 Atherosclerotic heart disease of native coronary artery without angina pectoris; I10 Essential (primary) hypertension; Z79.899 Other long term (current) drug therapy; R26.89 Other abnormalities of gait and mobility
CPT/HCPCS: 36415; 71046; 80053; 81001; 85025; 87040; 87070; 87086; 87205; 94640; 94760; A4222; J0696; J1956; J2930; J7626

== ENCOUNTER 2022-11-07 15:59 | Observation (INO) ==
[2022-11-07 17:03] VITALS: BMI 26.5
[2022-11-07] MEDS ORDERED: PREVNAR 13 SYRINGE IM ONE (17:03)
[2022-11-07] MEDS ORDERED: MORPHINE SULFATE INJ 2 MG INJ IVP PRN (17:11)
[2022-11-07 17:33] LABS: BASOPHILS # (AUTO) 0.2 X10^3/uL (0.0-0.1); BASOPHILS % (AUTO) 1.8 % (0.2-1.0); EOSINOPHILS % (AUTO) 0.5 % (0.9-2.9); HEMATOCRIT 33.3 % (36.0-47.0); HEMOGLOBIN 11.6 g/dL (12.0-16.0); LYMPHOCYTES # (AUTO) 1.5 X10^3/uL (1.3-2.9); LYMPHOCYTES % (AUTO) 16.4 % (21.0-51.0); MEAN CORPUSCULAR HEMOGLOBIN 31.8 pg (27.0-34.0); MEAN CORPUSCULAR HGB CONC 34.8 g/dL (33.0-35.0); MEAN CORPUSCULAR VOLUME 91.4 fL (80.0-100.0); MEAN PLATELET VOLUME 7.8 fL (7.4-11.0); MONOCYTES # (AUTO) 0.5 x10^3/uL (0.3-0.8); MONOCYTES % (AUTO) 4.9 % (0.0-13.0); NEUTROPHILS # (AUTO) 7.2 x10^3/uL (2.2-4.8); NEUTROPHILS % (AUTO) 76.4 % (42.0-75.0); RED BLOOD COUNT 3.65 X10^6/uL (3.5-5.4); RED CELL DISTRIBUTION WIDTH 14.2 % (11.6-16.5); WHITE BLOOD COUNT 9.4 X10^3/uL (3.6-10.0)
[2022-11-07 17:38] LABS: CARBON DIOXIDE 25.3 mmol/L (21-32); CHLORIDE 105 mmol/L (98-107); SODIUM 139 mmol/L (136-145)
--- NOTE | 2022-11-07 17:45 | DR.H&P ---
H&P - History & Physical for Day of: H&P Date: 11/07/22 - Chief Complaint Chief Complaint: "RIGHT SIDE PAIN AND VOMITING" - History of Present Illness History of Present Illness: PT IS 87 WF, DIRECT ADMIT FROM DR BROOKS OFFICE WITH INTRACTABLE RIGHT LOWER QUADRANT AND RIGHT FLANK PAIN WITH TENDERNESS. PT REPORTS ONSET OF PAIN 2-3 DAYS AND WORSENING. PT REPORTS ONSET OF VOMITING TODAY AND CANNOT WALK DUE TO PAIN. PT WAS IN WHEELCHAIR IN OFFICE, TOOK PERCOCET AT HOME FOR PAIN WITHOUT ANY RELIEF. PTS BLOOD PRESSURE WAS ELEVATED IN THE OFFICE AT 180/96. PT HAS PMH OF HTN, OA, CAD. PT ADMITTED FOR TREATMENT AND EVALUATION OF ACUTE ILLNESS. - Past Medical History Past Medical History: Arthritis, Hypertension - Past Surgical History Surgical History: Appendectomy, Cholecystectomy, Hysterectomy - Family History Family Medical History: Diabetes Mellitus, [place], Coronary Artery Disease - Social History Does patient currently use any type of tobacco product: No Have you used tobacco products in the last 12 months: No Type of Tobacco Use: None Alcohol Use: None Drug Use: None - Medications Home Medications: No Known Drug Allergies Allergy (Verified 04/21/18 11:18) - Review of Systems Constitutional: Fever, Chills Eyes: No Symptoms Reported ENT: No Symptoms Reported Respiratory: SOB with Excertion Cardiovascular: No Symptoms Reported Gastrointestinal: Nausea, Vomiting, Abdominal Pain Genitourinary: Frequency, Incontinence Musculoskeletal: Back Pain Skin: No Symptoms Reported Neurological: No Symptoms Reported - Physical Exam Vital Signs: Temperature 97.5 F Pulse Rate [Left Brachial] 62 Respiratory Rate 20 Blood Pressure [Right Arm] 178/74 Blood Pressure [Left Arm] 194/81 Blood Pressure 178/74 O2 Sat by Pulse Oximetry 94 Oriented: Normal Eyes: Normal Ear: Normal Nose: Normal Throat: Normal Respiratory: Clear Throughout Cardiovascular: Normal : Normal Auscultation: Bowel Sounds: Normal Palpation: Normal Tenderness: RLQ, Suprapubic, Severe, Other (RIGHT FLANK TENDERNESS) Skin: Decreased Turgur Musculoskeletal: Right, Back:Thoracic Mood Description: Anxious Affect: Anxious Speech Pattern: Clear, Appropriate - Assessment/Plan (1) Intractable right lower quadrant abdominal pain Status: Acute Plan: ADMIT, IV HYDRATION AND PAIN CONTROL. BP CONTROL, UA AND UC. CT ABD/PELVIS WITH CONTRAST, VERIFY HOME MEDICATION. STRICT I&OS. NAUSEA CONTROL, IV ROCEPHIN 1GM (2) Urinary tract infection Status: Acute (3) Hypertension Status: Acute - Allergies Allergies/Adverse Reactions: Allergies Allergy/AdvReac Type Severity Reaction Status Date / Time No Known Drug Allergies Allergy Verified 04/21/18 11:18
[2022-11-07 17:49] LABS: ALANINE AMINOTRANSFERASE 15 Units/L (12-78); ALBUMIN 4.1 g/dL (3.4-5.0); ALKALINE PHOSPHATASE 75 Units/L (46-116); ASPARTATE AMINO TRANSFERASE 18 Units/L (15-37); BLOOD UREA NITROGEN 23 mg/dL (7-18); COR NA(FOR HYPERGLY) 140 mmol/L (136-145); TOTAL PROTEIN 7.4 g/dL (6.4-8.2); eGFR NON BLACK RACES 50 (>60)
[2022-11-07] MEDS: TORADOL 15 MG VIAL IVP PRN (18:05)
[2022-11-07] MEDS: NS 1,000 ML IV 1,000 ML IV SCH (18:05)
[2022-11-07] MEDS: LOPRESSOR TAB 25 MG PO SCH (21:31)
[2022-11-07 21:59] LABS: BILIRUBIN,URINE NEGATIVE (NEGATIVE); BLOOD/HEMOGLOBIN,URINE 1+ (NEGATIVE); GLUCOSE, URINE NEGATIVE (NEGATIVE); KETONES,URINE NEGATIVE (NEGATIVE); LEUKOCYTE ESTERASE ,URINE NEGATIVE (NEGATIVE); NITRITES,URINE NEGATIVE (NEGATIVE); PH,URINE 6.5 (5.0 - 8.0); PROTEIN,URINE 2+ (NEGATIVE); UROBILINOGEN,URINE NORMAL (NORMAL)
[2022-11-07 22:01] LABS: APPEARANCE,URINE CLEAR (CLEAR); COLOR,URINE YELLOW (YELLOW)
[2022-11-07 22:04] LABS: BACTERIA,URINE TRACE /HPF (NEGATIVE); SQUAMOUS EPITHELIAL CELL,UR RARE /HPF (NEGATIVE)
[2022-11-08 06:09] LABS: BASOPHILS # (AUTO) 0.2 X10^3/uL (0.0-0.1); BASOPHILS % (AUTO) 3.2 % (0.2-1.0); EOSINOPHILS # (AUTO) 0.2 x10^3/uL (0.0-0.2); EOSINOPHILS % (AUTO) 2.6 % (0.9-2.9); HEMATOCRIT 33.8 % (36.0-47.0); HEMOGLOBIN 11.7 g/dL (12.0-16.0); LYMPHOCYTES # (AUTO) 2.2 X10^3/uL (1.3-2.9); LYMPHOCYTES % (AUTO) 28.5 % (21.0-51.0); MEAN CORPUSCULAR HEMOGLOBIN 31.4 pg (27.0-34.0); MEAN CORPUSCULAR HGB CONC 34.7 g/dL (33.0-35.0); MEAN CORPUSCULAR VOLUME 90.3 fL (80.0-100.0); MEAN PLATELET VOLUME 8.1 fL (7.4-11.0); MONOCYTES # (AUTO) 0.7 x10^3/uL (0.3-0.8); MONOCYTES % (AUTO) 8.5 % (0.0-13.0); NEUTROPHILS # (AUTO) 4.4 x10^3/uL (2.2-4.8); NEUTROPHILS % (AUTO) 57.2 % (42.0-75.0); RED BLOOD COUNT 3.74 X10^6/uL (3.5-5.4); RED CELL DISTRIBUTION WIDTH 13.9 % (11.6-16.5); WHITE BLOOD COUNT 7.7 X10^3/uL (3.6-10.0)
[2022-11-08 06:25] LABS: ALANINE AMINOTRANSFERASE 15 Units/L (12-78); ALBUMIN 3.8 g/dL (3.4-5.0); ALKALINE PHOSPHATASE 69 Units/L (46-116); ASPARTATE AMINO TRANSFERASE 19 Units/L (15-37); BLOOD UREA NITROGEN 19 mg/dL (7-18); CARBON DIOXIDE 25.3 mmol/L (21-32); CHLORIDE 107 mmol/L (98-107); CREATININE 0.97 mg/dL (0.55-1.02); SODIUM 142 mmol/L (136-145); TOTAL PROTEIN 7.1 g/dL (6.4-8.2); eGFR NON BLACK RACES 58 (>60)
[2022-11-08] MEDS: NS 1,000 ML IV 1,000 ML IV SCH (07:09)
[2022-11-08] MEDS: TORADOL 15 MG VIAL IVP PRN ×2 (08:30→16:06)
[2022-11-08] MEDS: LOPRESSOR TAB 25 MG PO SCH (08:34)
[2022-11-08] MEDS: ROCEPHIN VIAL 1 GRAM 1 G in NS 100 ML IV 100 ML IV SCH ×2 (08:48→08:49)
[2022-11-08] MEDS ORDERED: NORVASC TAB 5 MG PO SCH (09:00)
[2022-11-08] MEDS ORDERED: SYNTHROID 50 mcg TAB PO SCH (09:00)
--- NOTE | 2022-11-08 09:11 | CT ---
HISTORYRIGHT LOWER QUAD PAINSTUDYABDOMEN/PELVIS WITH CONCOMPARISONNone.TECHNIQUEMultiple axial images of the abdomen and pelvis were obtained from the lung bases to the pubic symphysis after the administration of IV contrast. Dose reduction techniques including Automated Exposure Control (AEC) and adjustment of mA and kV were utilized.FINDINGSThere is mild subsegmental atelectasis in the lung base. There is a small hiatal hernia. The heart is borderline in size. Status post cholecystectomy. The liver, spleen, pancreas, adrenal glands, and kidneys have a benign appearance. The urinary bladder appears benign. Status post hysterectomy. Appendix is not visualized and may be surgically absent. Negative for bowel obstruction. Severely atherosclerotic normal caliber abdominal aorta. No pathologic adenopathy. No free air, free fluid or collection. No acute osseous abnormality. Mild leftward curvature of the thoracolumbar spine. Schmorl's node with chronic compression deformity of T12. Mild compression deformity anteriorly of L1..IMPRESSIONThe appendix is not visualized and may be surgically absent. Status post hysterectomy and cholecystectomy. The theSmall hiatal hernia.Electronically signed by: Boyd Cortes (Nov 08, 2022 09:09:23)
[2022-11-08] MEDS ORDERED: SOLU-Medrol 40 MG VIAL IVP ONE (10:14)
[2022-11-08] MEDS ORDERED: APRESOLINE INJ 20 MG VIAL IVP PRN (10:14)
[2022-11-08] MEDS: FLEXERIL TAB 10 MG PO SCH ×2 (10:52→14:06)
[2022-11-08 15:40] VITALS: BP 161/69
--- NOTE | 2022-11-11 11:20 | RAD ---
HISTORYBack painSTUDYThoracic spine two viewsCOMPARISONNoneFINDINGSOsteopenia with moderate dextroscoliosis. Degenerative osteophytes are present at multiple levels without evidence for acute fracture, bone destruction or subluxation.Hiatal hernia incidentally noted.IMPRESSIONThoracic scoliosis with multilevel degenerative spondylosis.Electronically signed by: HUMBLE SAHA (Nov 11, 2022 11:18:18)
--- NOTE | 2022-11-11 11:21 | RAD ---
HISTORYBack painSTUDYLumbar spine three viewsCOMPARISONNoneFINDINGSDegenerative disc narrowing and osteophyte formation noted at multiple lumbar interspaces. There is slight compression deformity of the superior and inferior endplates of T12. No bone destruction, subluxation is noted. Detail is limited to some degree by obscuring colon contrast material from recent CT imaging.IMPRESSIONMultilevel degenerative lumbar disc disease and spondylosis. Mild compression contour deformity of T12 most consistent with remote injury.Electronically signed by: HUMBLE SAHA (Nov 11, 2022 11:20:23)
== END 2022-11-08 16:10 | disposition home or self-care (01) ==
LOC: MED/SURG
PROVIDERS: ADMIT Internal Medicine; ATTEND Internal Medicine
DX: R11.10 Vomiting, unspecified; M54.89 Other dorsalgia; R10.31 Right lower quadrant pain; I10 Essential (primary) hypertension; N39.0 Urinary tract infection, site not specified; I25.10 Atherosclerotic heart disease of native coronary artery without angina pectoris